=== PATIENT | male | born 1970 | race Caucasian/White ===

== ENCOUNTER 2018-06-15 10:50 | Emergency (ER) | payer OTHER ==
[2018-06-15 10:55] VITALS: BP 119/48
[2018-06-15] MEDS ORDERED: PROPARACAINE 0.5% 15 ML OPHT DROP OP ONE (10:59)
[2018-06-15] MEDS ORDERED: FLUORESCEIN SODIUM 1 MG STRIP OP ONE (11:00)
--- NOTE | 2018-06-15 11:10 | EDPHY ---
H & P Stated Complaint: L eye irritation/pain--woke up feeling like poss FB in L eye-- unk cause Source: Patient Exam Limitations: No limitations - Medical/Surgical History Hx Asthma: No Hx Chronic Respiratory Disease: No Hx Diabetes: No Hx Cardiac Disease: No Hx Renal Disease: No Hx Cirrhosis: No Hx Alcoholism: No Hx HIV/AIDS: No Hx Splenectomy or Spleen Trauma: No Other PMH: none - Social History Smoking Status: Light smoker Time Seen by Provider: 06/15/18 11:06 HPI/ROS: HPI: This is a 48-year-old male who presents with Chief Complaint: L eye irritation/pain--woke up feeling like poss FB in L eye-- unk cause Location: Left eye Quality: Irritation, pain Duration: Approximately 1-2 hours prior to arrival Signs and Symptoms: no fever, no nausea, no vomiting, no photophobia, no noise sensitivity, no neck stiffness, no ear pain, no tinnitus, no nasal congestion, no sinus pressure, no weakness, no radiation, no aura Timing: Acute Severity: Moderate Context: Patient reports that he woke up and felt like he had something in his left eye. He noted a small bump on his left upper eyelash line. He does have a cat that sleeps with him and believes that maybe some of the hair got into his eye. He walked to work and noted a foreign body sensation that continued with tearing of his left eye. EMS was at his job and irrigated his eye. He reported mild relief of the symptoms. Wears corrective lenses but not wearing currently. Does not wear contact lenses. Last eye exam was 2 years ago. Reports tetanus is current. Modifying Factors: See above Comment: ROS: A comprehensive 10 system review of systems is otherwise negative aside from elements mentioned in the history of present illness. MEDICAL/SURGICAL/SOCIAL HISTORY: Medical history: Generally healthy. Does not take any regular medications. Surgical history: Denies Social history: Light smoker. . Works at [employer]. Family history noncontributory. General appearance: Well-developed, well-nourished, smells like alcohol middle- aged white male, nontoxic in appearance Visual Acuity: noted from Nurse's notes. Pupils: equal round and reactive to light. EOMI. Lids: Mild left upper edema/swelling with small nodule area consistent with a stye in the eyelash line Skin: no proptosis, no periorbital erythema or swelling, no vesicles. Conjunctivae: not injected, no discharge Cornea: exam with fluorescein shows small amount of uptake over the iris Anterior chamber: normal, no hyphema or hypopyon, no rust ring Neuro: Cranial nerves 2-12 grossly intact. Alert and oriented x4. (Garima Thao) Constitutional: Initial Vital Signs Temperature (C) 36.0 C 06/15/18 10:52 Heart Rate 67 06/15/18 10:52 Respiratory Rate 18 06/15/18 10:52 Blood Pressure 119/48 L 06/15/18 10:52 O2 Sat (%) 99 06/15/18 10:52 O2 Delivery Mode Room Air Allergies/Adverse Reactions: No Known Allergies Allergy (Unverified 12/15/14 08:52) Home Medications: Medication Instructions Recorded Polymyxin B Sulfate/Tmp [Polytrim 1 drops LEFTEYE Q4 #1 bottle 06/15/18 Opht Drops (*)] Medical Decision Making ED Course/Re-evaluation: Vital signs reviewed and stable upon arrival. Unable to obtain visual acuity as patient did not bring corrective lenses. Patient has a mild stye with no signs of periorbital cellulitis Mild corneal abrasion noted over the iris. Will start antibiotic eyedrops. This patient was seen under the supervision of my secondary supervising physician. I evaluated care for this patient independently. (Garima Thao) Differential Diagnosis: Differential diagnosis includes but is not limited to foreign body, corneal abrasion restrained, conjunctivitis, dry eye syndrome. (Garima Thao) Other Provider: The patient was evaluated and managed by the Physician [employer]. My co- signature indicates that I have reviewed this chart and I agree with the findings and plan of care as documented. I am the secondary supervising physician. (Lisette Ellis) - Data Points Medications Given: Discontinued Medications Proparacaine HCl (Alcaine 0.5%) 1 drops OP EDNOW ONE Stop: 06/15/18 11:00 Last Admin: 06/15/18 11:24 Dose: 1 drop Departure - Departure Disposition: Home, Routine, Self-Care Clinical Impression: Corneal abrasion, left Qualifiers: Encounter type: initial encounter Qualified Code(s): S05.02XA - Injury of conjunctiva and corneal abrasion without foreign body, left eye, initial encounter Hordeolum externum (stye) Qualifiers: Laterality: left Eyelid: upper Qualified Code(s): H00.014 - Hordeolum externum left upper eyelid Condition: Good Instructions: Stye (ED), Corneal Abrasion (ED) Additional Instructions: Apply Polytrim 1-2 drops into your left eye every 4 hr while awake x5 days. Please avoid using your hands to touch your eyes. Wash your hands frequently with mild soap and water. Apply cool compresses for 15-20 minutes at a time several times per day for the next 1-2 days. Follow up with ophthalmology in 5-7 days if no improvement in symptoms. Eye Complaint: Return to the Emergency Department for any increase in eye pain, redness, swelling, discharge or any worsening of your vision. Referrals: Nikki Quintana MD [Medical Doctor] - As per Instructions Stand Alone Forms: Work Excuse Prescriptions: Polymyxin B Sulfate/Tmp [Polytrim Opht Drops (*)] 1 drops LEFTEYE Q4 #1 bottle
== END 2018-06-15 11:25 | disposition home or self-care (01) ==
DX: S05.02XA Injury of conjunctiva and corneal abrasion without foreign body, left eye, initial encounter (principal); H00.014 Hordeolum externum left upper eyelid; X58.XXXA Exposure to other specified factors, initial encounter; Y99.9 Unspecified external cause status